=== PATIENT | female | born 1965 | race Caucasian/White ===

== ENCOUNTER 2016-11-27 10:29 | Emergency (ER) | payer OTHER ==
[~2016-11-27] VITALS: Ht 162.6 cm; Wt 89.5 kg
[2016-11-27 10:35] VITALS: BP 148/94; PULSE 90; RESP 17; TEMP 99; O2SAT 100
[2016-11-27] MEDS ORDERED: PROMETHAZINE INJ 25 MG/ML VIAL IM ONE (11:00)
[2016-11-27] MEDS ORDERED: MECLIZINE HCL 25 MG TAB PO ONE (11:15)
[2016-11-27] MEDS ORDERED: MECL-62 PO (11:23)
[2016-11-27] MEDS ORDERED: ZOFR4TAB3 SL (11:23)
--- NOTE | 2016-11-27 11:23 | PD ---
HPI Chief Complaint: Head Injury Time Seen by Provider: 10:46 Travel History International Travel<30 days: No Contact w/Intl Traveler<30days: No Traveled to known affect area: No History of Present Illness HPI Is a 51-year-old woman who presents to the emergency department complaining of vertigo and dizziness with one episode of vomiting. States that she fell 2 days ago slipped and fell backward on the hard 4 and hit her head. She was dazed for a few seconds afterwards but no LOC. Some intermittent mild dizziness after that. No significant symptoms. This morning started getting worsening vertigo episode of vomiting. Symptoms are mild and was in the background but precipitated with any head movement. She is some minimal, 2 out of 10, headache. There is a lot of tenderness to the back of her head. She otherwise has been feeling well. History Past Medical History Medical History: Denies Significant Hx Tetanus Vaccination: < 5 Years Influenza Vaccination: No LMP: MENOPAUSAL Past Surgical History Surgical History: No Previous Surgery Social History Alcohol Use: Yes (OCC) Tobacco Use: Yes (OCC) Allergies-Medications (Allergen,Severity, Reaction): Coded Allergies: No Known Allergies (Unverified , 11/27/16) Reported Meds & Prescriptions Reported Meds & Active Scripts Active No Active Prescriptions or Reported Medications Review of Systems Except as stated in HPI: all other systems reviewed are Neg Physical Exam Narrative GENERAL: Well-appearing 51-year-old woman, no acute distress. SKIN: Warm and dry. HEAD: Normocephalic. There is some tenderness in the posterior occiput. No palpable skull fractures contusions or areas of swelling. EYES: Pupils equal and round. No scleral icterus. No injection or drainage. ENT: No nasal bleeding or discharge. Mucous membranes pink and moist. NECK: Trachea midline. No JVD. CARDIOVASCULAR: Regular rate and rhythm. No murmur appreciated. RESPIRATORY: No accessory muscle use. Clear to auscultation. Breath sounds equal bilaterally. GASTROINTESTINAL: Abdomen soft, non-tender, nondistended. Hepatic and splenic margins not palpable. MUSCULOSKELETAL: No obvious deformities. No edema. NEUROLOGICAL: Awake and alert. No obvious cranial nerve deficits. Motor grossly within normal limits. Normal speech. Estrella-Hallpike is obviously positive on both sides with a beating torsional nystagmus brought on with maneuver and with fatigue and resolution after about 20 seconds. Normal finger to nose. Normal gait. No other abnormality. Data Data Last Documented VS Vital Signs Date Time Temp Pulse Resp B/P Pulse Ox O2 Delivery O2 Flow Rate FiO2 11/27/16 10:51 100 Room Air 11/27/16 10:35 99.0 90 17 148/94 Orders Promethazine Inj (Phenergan Inj) (11/27/16 11:00) Meclizine (Antivert) (11/27/16 11:15) MDM Medical Decision Making Medical Screen Exam Complete: Yes Emergency Medical Condition: Yes Differential Diagnosis BPPV, traumatic brain injury, vertiginous migraine, other Narrative Course Medical decision making 51-year-old woman fall from standing 2 days ago, now with vertigo and dizziness that appears to be BPPV. She has a mild headache. No other symptoms to suggest clinically important traumatic brain injury. Recommend against CT imaging at this time given a clear alternative explanation for her current symptoms. Recommend meclizine, antiemetics as needed, return for any worsening headache or any other new or worsening symptoms. 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 Diagnosis Primary Impression: BPPV (benign paroxysmal positional vertigo) Qualified Code: H81.13 - BPPV (benign paroxysmal positional vertigo), bilateral Additional Impression: Closed head injury Qualified Code: S09.90XA - Closed head injury, initial encounter Additional Instructions: Take meclizine as prescribed. Take Zofran as prescribed as needed for vomiting. Follow-up with your primary physician if you're not feeling improved in 3-5 days. Return to the emergency department for any worsening headache, worsening trouble walking, or any other new or worsening symptoms Med/Other Pt SpecificInfo: Prescription(s) given Scripts Meclizine 25 Mg Tab25 Mg PO TID PRN (VERTIGO) #15 TAB Ref 0 Prov:Yousif Downs MD 11/27/16 Ondansetron Odt (Zofran Odt)4 Mg Tab4 Mg SL Q8HR PRN (Nausea/Vomiting) #15 TAB May substitute non-ODT form. Prov:Yousif Downs MD 11/27/16 Disposition: 01 DISCHARGE HOME Condition: Stable Yousif Downs MD Nov 27, 2016 11:23
== END 2016-11-27 11:49 | disposition home or self-care (01) ==
LOC: PHED 10:29
DX: H81.13 Benign paroxysmal vertigo, bilateral (principal); W01.0XXA Fall on same level from slipping, tripping and stumbling without subsequent striking against object, initial encounter; Y93.9 Activity, unspecified; Y99.9 Unspecified external cause status
CPT/HCPCS: 96372; 99283; J2550